=== PATIENT | male | born 1995 | race Caucasian/White ===

== ENCOUNTER 2016-07-26 03:26 | Emergency (ER) | payer OTHER ==
--- NOTE | ~2016-07-26 | CT71 ---
[facility] A Service of [facility] RADIOLOGY TEXT RESULTS PATIENT: ASHLEY SOARES LOCATION: [facility] : [birth year] UNIT #: [id number] AGE: [address]: Jeremy Wallace MD SEX: M ORDER DR: [id number] [facility]. [place], [place] [address] [id number] MR#: [id number] Acc #: [id number] NAME: ASHLEY SOARES : 1995 SEX: M STUDY DATE/TIME: 07/26/2016 3:05 UNIT: TEGAN ROOM: STUDY DESCRIPTION: CT Head Wo Contrast Attending Physician: Jeremy Wallace M.D. Ordering Physician: Jeremy Wallace M.D. Primary Care Physician: No Primary Care Physician MEDICAL IMAGING REPORT This report is preliminary unless electronic signature is present EXAM CT head, noncontrast, 07/26/2016. HISTORY 21-year-old male in the ED complaining of severe headaches with nausea, vomiting, chills and blurry vision. Dizziness. Symptoms began earlier today. TECHNIQUE CT examination of the head without IV contrast. This CT exam was performed with one or more of the following radiation dose reduction techniques: automatic control, adjustment of mA and/or kV according to patient size, and iterative reconstruction. FINDINGS The examination is negative. No evidence of intracranial hemorrhage, mass, mass effect, cerebral edema or hydrocephalus. Congenital cavum septum pellucidum, a normal variant. IMPRESSION Negative head CT examination. Dictated by... Eric Infante M.D. THIS IS AN ELECTRONICALLY VERIFIED REPORT Eric Infante M.D. at 07/27/2016 5:30 AM GILBERTOW/shima TD: 07/27/2016 01:28 JOB #: [id number] MEDICAL IMAGING REPORT [facility] A Service of [facility] RADIOLOGY TEXT RESULTS PATIENT: ASHLEY SOARES LOCATION: [facility] : [birth year] UNIT #: [id number] AGE: [address]: Jeremy Wallace MD SEX: M ORDER DR: COPY
[~2016-07-26 03:26] MED LIST: ALB/IPRATROPIUM/1 E1 INH; AZITHROMYCIN250 MG PO; BACITRACIN30 GM TOP; DOXYCYCLINE HY100 M3 PO; MEDROL4 MG/DOSE- PO; NO MEDICATIONS; ROBAXIN500 MG PO; VOLTAREN50 MG PO
== END 2016-07-26 03:40 | disposition home or self-care (01) ==
LOC: CED 03:26
DX: G43.909 Migraine, unspecified, not intractable, without status migrainosus (principal); F17.200 Nicotine dependence, unspecified, uncomplicated
CPT/HCPCS: 70450; 96372; 99284; J1885

== ENCOUNTER 2016-12-28 23:47 | Emergency (ER) | payer OTHER ==
[~2016-12-28] VITALS: Ht 170.2 cm; Wt 68.0 kg
== END 2016-12-29 01:12 | disposition home or self-care (01) ==
LOC: CED 23:47
DX: R51 Headache (principal)
CPT/HCPCS: 36415; 96374; 96375; 99283; J1100; J1200; J1885; J2765